=== PATIENT | female | born 1970 | race American Indian/Alaskan Native ===

== ENCOUNTER 2020-01-15 20:26 | Emergency (ER) | payer OTHER ==
[2020-01-15 21:27] VITALS: BP 107/63; PULSE 93
--- NOTE | 2020-01-15 21:49 | CR ---
PROCEDURE INFORMATION: Exam: XR Right Knee Exam date and time: 01/15/2020 9:37 PM Age: 49 years old Clinical indication: Other: Jumped down felt it pop; Additional info: Fall onto RT knee, heard a "pop" TECHNIQUE: Imaging protocol: XR Right knee. Views: 3 views. COMPARISON: No relevant prior studies available. FINDINGS: Bones/joints: There is an acute comminuted fracture of the lateral tibial plateau which extends medially to involve the lateral tibial spine. The distal femur and proximal fibula appear intact as visualized. There is a large knee joint effusion containing a fat fluid level. Soft tissues: There is soft tissue swelling. IMPRESSION: Acute lateral tibial plateau fracture with lipohemarthrosis.
[2020-01-15] MEDS ORDERED: Acetaminophen/HYDROcodone 325-10 MG Tab PO ONE (22:04)
--- NOTE | 2020-01-15 22:09 | EDM.PDOC ---
ED HPI GENERAL MEDICAL PROBLEM - General Chief Complaint: Lower Extremity Injury/Pain Stated Complaint: RT KNEE PAIN Time Seen by Provider: 01/15/20 22:05 Source of Information: Reports: Patient History Limitations: Reports: No Limitations - History of Present Illness INITIAL COMMENTS - FREE TEXT/NARRATIVE: fell onto right knee today. Right Knee Pain Score (Numeric/FACES): 8 - Related Data Allergies Allergy/AdvReac Type Severity Reaction Status Date / Time Penicillins Allergy Severe Difficulty Verified 01/15/20 21:15 Breathing clopidogrel bisulfate Allergy Intermediate Tachycardia Verified 01/15/20 21:15 [From Plavix] amoxicillin Allergy Rash Verified 01/15/20 21:15 insulin detemir Allergy Itching Verified 01/15/20 21:15 [From Levemir] lamotrigine Allergy Itching Verified 01/15/20 21:15 latex Allergy Itching Verified 01/15/20 21:15 morphine Allergy Tachycardia Verified 01/15/20 21:15 nitrofurantoin Allergy Chest Verified 01/15/20 21:15 Tightness rosuvastatin calcium Allergy Rash Verified 01/15/20 21:15 [From Crestor] vitamin B12 Allergy Rash Uncoded 05/16/15 06:23 Home Meds: Home Meds Aspirin [Halfprin] 81 mg PO DAILY 03/24/15 [History] Calcium Carbonate/Vitamin D3 [Calcium 250+D] 1 tab PO BID 03/24/15 [History] Cholecalciferol (Vitamin D3) [Vitamin D3] 1,000 unit PO DAILY 03/24/15 [History] Clindamycin HCl 4 tab PO ASDIRECTED PRN 03/24/15 [History] Ibuprofen 200 mg PO Q6H PRN 03/24/15 [History] Multivitamin [Multivitamins] 1 tab PO DAILY 03/24/15 [History] Nitroglycerin [Nitrostat] 1 tab SL ASDIRECTED 03/24/15 [History] atenoloL [Atenolol] 25 mg PO DAILY 03/24/15 [History] atorvaSTATin Calcium [Atorvastatin Calcium] 20 mg PO DAILY 03/24/15 [History] diphenhydrAMINE [Benadryl] 25 mg PO Q6H PRN 03/24/15 [History] Loratadine 10 mg PO DAILY 05/13/15 [History] Omeprazole 1 cap PO DAILY 11/20/15 [History] SitaGLIPtin [Januvia] 100 mg PO DAILY 12/31/15 [History] Past Medical History Other HEENT History: WEARS CORRECTIVE LENSES Cardiovascular History: Reports: High Cholesterol, Stents, Other (See Below) Other Cardiovascular History: 3 stents placed Gastrointestinal History: Reports: Other (See Below) Other Gastrointestinal History: HX OF DUODENAL ULCER MANAGER E LEARNING History: Reports: , Other (See Below) Other MANAGER E LEARNING History: hx of Other Musculoskeletal History: TOE FRACTURES SET & TAPED Psychiatric History: Reports: Other (See Below) Other Psychiatric History: 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 Endocrine/Metabolic History: Reports: Diabetes, Type II Dermatologic History: Reports: Other (See Below) Other Dermatologic History: DERMATITIS - Past Surgical History Female Surgical History: Reports: Section, Hysterectomy Social & Family History - Family History Family Medical History: Noncontributory - Tobacco Use Smoking Status *Q: Current Every Day Smoker Years of Tobacco use: 30 Packs/Tins Daily: 0.4 Used Tobacco, but Quit: No Second Hand Smoke Exposure: Yes - Caffeine Use Caffeine Use: Reports: Coffee, Soda - Recreational Drug Use Recreational Drug Use: No - Living Situation & Occupation Living situation: Reports: with Family Review of Systems - Review of Systems Review Of Systems: Comprehensive ROS is negative, except as noted in HPI. ED EXAM, GENERAL - Physical Exam Exam: See Below Exam Limited By: No Limitations General Appearance: Alert, WD/WN, Mild Distress, Moderate Distress, Other (pain) Ears: Hearing Grossly Normal Throat/Mouth: Normal Voice, No Airway Compromise Head: Atraumatic Neck: Non-Tender, Full Range of Motion Respiratory/Chest: No Respiratory Distress Cardiovascular: Regular Rate, Rhythm GI/Abdominal: Soft, Non-Tender Extremities: Joint Swelling, Limited Range of Motion, Other (tender R/P, NV wnl, gait limited to pain) Neurological: Alert, Oriented, Normal Cognition, No Motor/Sensory Deficits Psychiatric: Tearful Skin Exam: Warm, Dry, Normal Color Lymphatic: No Adenopathy Course - Vital Signs Last Recorded V/S: Last Vital Signs Temp 36.7 C 01/15/20 21:04 Pulse 93 01/15/20 21:04 Resp 16 01/15/20 21:04 BP 107/63 01/15/20 21:04 Pulse Ox 98 01/15/20 21:04 - Orders/Labs/Meds Orders: Active Orders 24 hr Category Date Time Status Acetaminophen/HYDROcodone [Trout 325-10 MG] Med 01/15/20 22:04 Once 1 tab PO ONETIME ONE Medication Orders Hydrocodone Bitart/Acetaminophen (Trout 325-10 Mg) 1 tab PO ONETIME ONE Stop: 01/15/20 22:05 Meds: Medications Generic Name Dose Route Start Last Admin Trade Name Freq PRN Reason Stop Dose Admin Hydrocodone Bitart/Acetaminophen 1 tab 01/15/20 22:04 Trout 325-10 Mg PO 01/15/20 22:05 ONETIME ONE - Re-Assessments/Exams Free Text/Narrative Re-Assessment/Exam: 01/15/20 22:06 results discussed with pt. Departure - Departure Time of Disposition: 22:07 Disposition: Home, Self-Care 01 Condition: Good Clinical Impression: Tibial plateau fracture, right Qualifiers: Encounter type: initial encounter Fracture type: closed Qualified Code(s): S 82.141A - Displaced bicondylar fracture of right tibia, initial encounter for closed fracture - Discharge Information Instructions: Nondisplaced Tibial Plateau Fracture Additional Instructions: 1) wear brace and use crutches 2) see clinic Saturday for ORTHOPEDIC REFERRAL for facture rx given; vicodin 5/325mg tid prn x 12 Sepsis Event Note (ED) - Evaluation Sepsis Screening Result: No Definite Risk - Focused Exam Vital Signs: Vital Signs Temp Pulse Resp BP Pulse Ox 01/15/20 21:04 36.7 C 93 16 107/63 98 - My Orders Last 24 Hours: My Active Orders 01/15/20 22:04 Acetaminophen/HYDROcodone [Trout 325-10 MG] 1 tab PO ONETIME ONE - Assessment/Plan Last 24 Hours: My Active Orders 01/15/20 22:04 Acetaminophen/HYDROcodone [Trout 325-10 MG] 1 tab PO ONETIME ONE
== END 2020-01-15 22:21 | disposition home or self-care (01) ==
LOC: DL.ED 20:26
DX: S82.141A Displaced bicondylar fracture of right tibia, initial encounter for closed fracture (principal); E78.00 Pure hypercholesterolemia, unspecified; F17.210 Nicotine dependence, cigarettes, uncomplicated; Z88.0 Allergy status to penicillin; Z88.1 Allergy status to other antibiotic agents; Z91.040 Latex allergy status; Z88.5 Allergy status to narcotic agent; Z88.8 Allergy status to other drugs, medicaments and biological substances; Z79.82 Long term (current) use of aspirin; Z79.899 Other long term (current) drug therapy; E11.9 Type 2 diabetes mellitus without complications; Z79.84 Long term (current) use of oral hypoglycemic drugs; W19.XXXA Unspecified fall, initial encounter
CPT/HCPCS: 73560; 99283; A9270

== ENCOUNTER 2020-07-26 14:52 | Emergency (ER) | payer OTHER ==
[2020-07-26 15:03] VITALS: BP 124/82; PULSE 96
[2020-07-26] MEDS ORDERED: Acetaminophen 500 MG Tab PO ONE (15:10)
--- NOTE | 2020-07-26 15:27 | EDM.PDOC ---
ED HPI GENERAL MEDICAL PROBLEM - General Chief Complaint: Lower Extremity Injury/Pain Stated Complaint: AMBULANCE Time Seen by Provider: 07/26/20 15:05 Source of Information: Reports: Patient, Old Records, RN, RN Notes Reviewed History Limitations: Reports: No Limitations - History of Present Illness INITIAL COMMENTS - FREE TEXT/NARRATIVE: Patient presents to the ED via EMS with complaints of bilateral knee pain and right ankle pain following a fall at home. The patient reports she has a history of right tibial plateau fracture from December 2019 which she has been treating conservatively; she declined surgery and has not yet been to PT. Today she states her crutches got caught in her vent and she tipped over into left knee which caused her to hyperextend her right knee and ankle. She states this incident occurred about two hours prior to her arrival to this facility. She has not taken any analgesics since sustaining the injury. She reports she is able to appropriately bear weight on her left extremity, but notes pain when doing so. She denies injury to her head and did not lose consciousness; she is not currently taking blood thinners. Right Knee Pain Score (Numeric/FACES): 6 - Related Data Allergies Allergy/AdvReac Type Severity Reaction Status Date / Time Penicillins Allergy Severe Difficulty Verified 07/26/20 14:59 Breathing clopidogrel bisulfate Allergy Intermediate Tachycardia Verified 07/26/20 14:59 [From Plavix] amoxicillin Allergy Rash Verified 07/26/20 14:59 insulin detemir Allergy Itching Verified 07/26/20 14:59 [From Levemir] lamotrigine Allergy Itching Verified 07/26/20 14:59 latex Allergy Itching Verified 07/26/20 14:59 morphine Allergy Tachycardia Verified 07/26/20 14:59 nitrofurantoin Allergy Chest Verified 07/26/20 14:59 Tightness rosuvastatin calcium Allergy Rash Verified 07/26/20 14:59 [From Crestor] vitamin B12 Allergy Rash Uncoded 07/26/20 14:59 Home Meds: Home Meds Aspirin [Halfprin] 81 mg PO DAILY 03/24/15 [History] Calcium Carbonate/Vitamin D3 [Calcium 250+D] 1 tab PO BID 03/24/15 [History] Cholecalciferol (Vitamin D3) [Vitamin D3] 1,000 unit PO DAILY 03/24/15 [History] Clindamycin HCl 4 tab PO ASDIRECTED PRN 03/24/15 [History] Ibuprofen 200 mg PO Q6H PRN 03/24/15 [History] Multivitamin [Multivitamins] 1 tab PO DAILY 03/24/15 [History] Nitroglycerin [Nitrostat] 1 tab SL ASDIRECTED 03/24/15 [History] atenoloL [Atenolol] 25 mg PO DAILY 03/24/15 [History] atorvaSTATin Calcium [Atorvastatin Calcium] 20 mg PO DAILY 03/24/15 [History] diphenhydrAMINE [Benadryl] 25 mg PO Q6H PRN 03/24/15 [History] Loratadine 10 mg PO DAILY 05/13/15 [History] Omeprazole 1 cap PO DAILY 05/13/15 [History] SitaGLIPtin [Januvia] 100 mg PO DAILY 12/31/15 [History] Past Medical History Other HEENT History: WEARS CORRECTIVE LENSES Cardiovascular History: Reports: High Cholesterol, Stents, Other (See Below) Other Cardiovascular History: 3 stents placed Respiratory History: Reports: None Gastrointestinal History: Reports: Other (See Below) Other Gastrointestinal History: HX OF DUODENAL ULCER Genitourinary History: Reports: None 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: , Other (See Below) Other INSURANCE OFFICE SUPERVISOR History: hx of Other Musculoskeletal History: TOE FRACTURES SET & TAPED Neurological History: Reports: None Psychiatric History: Reports: Other (See Below) Other Psychiatric History: 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 Endocrine/Metabolic History: Reports: Diabetes, Type II Hematologic History: Reports: None Immunologic History: Reports: None Oncologic (Cancer) History: Reports: None Dermatologic History: Reports: Other (See Below) Other Dermatologic History: DERMATITIS - Infectious Disease History Infectious Disease History: Reports: None - Past Surgical History Female Surgical History: Reports: Section, Hysterectomy Social & Family History - Family History Family Medical History: No Pertinent Family History - Tobacco Use Tobacco Use Status *Q: Heavy Tobacco User Years of Tobacco use: 20 Packs/Tins Daily: 1 - Caffeine Use Caffeine Use: Reports: Coffee - Recreational Drug Use Recreational Drug Use: No - Living Situation & Occupation Living situation: Reports: with Family Review of Systems - Review of Systems Review Of Systems: Comprehensive ROS is negative, except as noted in HPI. ED EXAM, GENERAL - Physical Exam Exam: See Below Exam Limited By: No Limitations General Appearance: Alert, No Apparent Distress Eye Exam: Bilateral Eye: EOMI, Normal Inspection, PERRL (3mm) Throat/Mouth: Normal Inspection, Normal Voice, No Airway Compromise Head: Atraumatic, Normocephalic Respiratory/Chest: No Respiratory Distress, Lungs Clear, Normal Breath Sounds, No Accessory Muscle Use, Chest Non-Tender Cardiovascular: Normal Peripheral Pulses, Regular Rate, Rhythm, No Gallop, No JVD, No Murmur, No Rub Peripheral Pulses: 2+: Radial (L), Radial (R), Posterior Tibial (L), Posterior Tibial (R), Dorsalis Pedis (L), Dorsalis Pedis (R) Extremities: Normal Capillary Refill, Joint Swelling (+2 non-pitting to right knee; +1 non-pitting to right ankle; trace non-pitting to left knee), Leg Pain (To bilateral knees and and right ankle), Limited Range of Motion (To bilateral knees and right ankle), Redness (To anterior aspect of left knee). No: Increased Warmth, Mottled, Pallor Neurological: Alert, Oriented, CN II-XII Intact, Normal Cognition, No Motor/Sensory Deficits, Abnormal Gait (Patient utilizes crutches d/t previous injury to right extremity) Psychiatric: Normal Affect, Normal Mood Skin Exam: Warm, Dry, Intact, Normal Color, No Rash. No: Ecchymosis, Erythema, Jaundice, Mottled, Pallor, Petechiae Course - Vital Signs Last Recorded V/S: Last Vital Signs Temp 98.1 F 07/26/20 14:59 Pulse 96 07/26/20 14:59 Resp 18 07/26/20 14:59 BP 124/82 07/26/20 14:59 Pulse Ox 95 07/26/20 14:59 - Orders/Labs/Meds Meds: Medications Discontinued Medications Generic Name Dose Route Start Last Admin Trade Name [place] PRN Reason Stop Dose Admin Acetaminophen 1,000 mg 07/26/20 15:10 07/26/20 15:37 Tylenol Extra Strength PO 07/26/20 15:11 1,000 mg ONETIME ONE Administration - Radiology Interpretation Free Text/Narrative:: [facility] - Final Radiology Report Call: [phone] assistance Online chat: [email or web address] Name: ONEL MESSINA Age: 50Years F Date: 07/26/2020 SSN: -- : [id number] Study: CR KNEE 3V LT Requesting Physician: Mary Peterson Images: 3 Addl Studies: Provided Clinical History: Swelling and pain following fall Contrast: Contrast Medium: Contrast Amount: Contrast Method: CONFIDENTIALITY STATEMENT This report is intended only for use by the referring physician, and only in accordance with law. If you received this in error, call [phone]. Page 1 of 1 PROCEDURE INFORMATION: Exam: XR Left Knee Exam date and time: 07/26/2020 3:30 PM Age: 50 years old Clinical indication: Other: Pain and swelling following fall; Additional info: Swelling and pain following fall TECHNIQUE: Imaging protocol: XR Left knee. Views: 3 views. COMPARISON: No relevant prior studies available. FINDINGS: Bones/joints: There is no evidence of acute fracture. There is no evidence of joint malalignment or dislocation. Mild degenerative changes. Soft tissues: There are no soft tissue masses or fluid collections. IMPRESSION: 1. No evidence of acute fracture. 2. No evidence of acute dislocation. 3. Mild degenerative changes. Thank you for allowing us to participate in the care of your patient. Dictated and Authenticated by: Aric Dickson DO 07/26/2020 3:42 PM Central Time ([place] & [place]) [facility] Final Radiology Report Call: [phone] assistance Online chat: [email or web address] Name: ONEL MESSINA Age: 50Years F Date: 07/26/2020 SSN: -- : [id number] Study: CR KNEE 3V RT Requesting Physician: Mary Peterson Images: 3 Addl Studies: Provided Clinical History: Swelling and pain following fall Contrast: Contrast Medium: Contrast Amount: Contrast Method: CONFIDENTIALITY STATEMENT This report is intended only for use by the referring physician, and only in acc ordance with law. If you received this in error, call [phone]. Page 1 of 1 PROCEDURE INFORMATION: Exam: XR Right Knee Exam date and time: 07/26/2020 3:28 PM Age: 50 years old Clinical indication: Other: Pain and swelling following fall; Additional info: Swelling and pain following fall TECHNIQUE: Imaging protocol: XR Right knee. Views: 3 views. COMPARISON: CR Knee 1V or 2V Rt 01/15/2020 9:37 PM FINDINGS: Bones/joints: Bones are osteopenic. There is depression of the lateral tibial plateau, similar to the prior study. Joint effusion is present. Soft tissues: Mild soft tissue swelling. IMPRESSION: 1. Bones are osteopenic. 2. There is depression of the lateral tibial plateau, similar to the prior study. 3. Joint effusion is present. 4. Mild soft tissue swelling. Thank you for allowing us to participate in the care of your patient. Dictated and Authenticated by: Aric Dickson DO 07/26/2020 3:41 PM Central Time ([place] & [place]) [facility] - Final Radiology Report Call: [phone] assistance Online chat: [email or web address] Name: ONEL MESSINA Age: 50Years F Date: 07/26/2020 SSN: -- : 1970 Study: CR ANKLE MIN 3V RT Requesting Physician: Mary Peterson Images: 3 Addl Studies: Provided Clinical History: Pain and swelling following fall Contrast: Contrast Medium: Contrast Amount: Contrast Method: CONFIDENTIALITY STATEMENT This report is intended only for use by the referring physician, and only in accordance with law. If you received this in error, call [phone]. Page 1 of 1 PROCEDURE INFORMATION: Exam: XR Right Ankle Exam date and time: 07/26/2020 3:25 PM Age: 50 years old Clinical indication: Other: Pain and swelling following fall TECHNIQUE: Imaging protocol: XR Right ankle. Views: 3 or more views. COMPARISON: No relevant prior studies available. FINDINGS: Bones/joints: Bones are osteopenic. There is no evidence of acute fracture. There is no evidence of joint malalignment or dislocation. Soft tissues: Soft tissue swelling is present. IMPRESSION: 1. Bones are osteopenic. 2. Soft tissue swelling is present. 3. No evidence of acute fracture. 4. No evidence of acute dislocation. Thank you for allowing us to participate in the care of your patient. Dictated and Authenticated by: Aric Dickson DO 07/26/2020 3:40 PM Central Time ([place] & [place]) - Re-Assessments/Exams Free Text/Narrative Re-Assessment/Exam: 07/26/20 Xrays of bilateral knees and right ankle unremarkable for fracture or dislocation; discussed findings with patient. Will treat strain of bilateral knees and right ankle with supportive care measures. Patient counseled on management of swelling, pain, and mobility. Red flag signs and symptoms which would warrant reevaluation discussed. Patient verbalized understanding and agreement with the plan of care. Departure - Departure Time of Disposition: 15:50 Disposition: Home, Self-Care 01 Condition: Good Clinical Impression: Injury of right knee, leg ankle and foot Qualifiers: Encounter type: initial encounter Qualified Code(s): S89.91XA - Unspecified injury of right lower leg, initial encounter Injury of left knee Qualifiers: Encounter type: initial encounter Qualified Code(s): S89.92XA - Unspecified injury of left lower leg, initial encounter - Discharge Information *PRESCRIPTION DRUG MONITORING PROGRAM REVIEWED*: Not Applicable *COPY OF PRESCRIPTION DRUG MONITORING REPORT IN PATIENT ROBYN: Not Applicable Forms: ED Department Discharge Additional Instructions: 1.) Continue following with your primary care provider regarding healing of right knee; including physical therapy. 2.) You may take acetaminophen (Tylenol) 1000mg every six hours, as pain persists. You may also take ibuprofen (Advil/Motrin) 400mg every six hours, as pain persists. You may stagger these medications so you are taking a dose of medicine every three hours. 3.) You may apply [id number] lidocaine cream to both knees and ankle, as pain persists. 4.) You may apply ice to the injured areas, as pain and swelling persist, for 20 minutes every hour. Sepsis Event Note (ED) - Evaluation Sepsis Screening Result: No Definite Risk - Focused Exam Vital Signs: Vital Signs Temp Pulse Resp BP Pulse Ox 07/26/20 14:59 98.1 F 96 18 124/82 95
--- NOTE | 2020-07-26 15:40 | CR ---
PROCEDURE INFORMATION: Exam: XR Right Ankle Exam date and time: 07/26/2020 3:25 PM Age: 50 years old Clinical indication: Other: Pain and swelling following fall TECHNIQUE: Imaging protocol: XR Right ankle. Views: 3 or more views. COMPARISON: No relevant prior studies available. FINDINGS: Bones/joints: Bones are osteopenic. There is no evidence of acute fracture. There is no evidence of joint malalignment or dislocation. Soft tissues: Soft tissue swelling is present. IMPRESSION: 1. Bones are osteopenic. 2. Soft tissue swelling is present. 3. No evidence of acute fracture. 4. No evidence of acute dislocation.
--- NOTE | 2020-07-26 15:41 | CR ---
PROCEDURE INFORMATION: Exam: XR Right Knee Exam date and time: 07/26/2020 3:28 PM Age: 50 years old Clinical indication: Other: Pain and swelling following fall; Additional info: Swelling and pain following fall TECHNIQUE: Imaging protocol: XR Right knee. Views: 3 views. COMPARISON: CR Knee 1V or 2V Rt 01/15/2020 9:37 PM FINDINGS: Bones/joints: Bones are osteopenic. There is depression of the lateral tibial plateau, similar to the prior study. Joint effusion is present. Soft tissues: Mild soft tissue swelling. IMPRESSION: 1. Bones are osteopenic. 2. There is depression of the lateral tibial plateau, similar to the prior study. 3. Joint effusion is present. 4. Mild soft tissue swelling.
--- NOTE | 2020-07-26 15:42 | CR ---
PROCEDURE INFORMATION: Exam: XR Left Knee Exam date and time: 07/26/2020 3:30 PM Age: 50 years old Clinical indication: Other: Pain and swelling following fall; Additional info: Swelling and pain following fall TECHNIQUE: Imaging protocol: XR Left knee. Views: 3 views. COMPARISON: No relevant prior studies available. FINDINGS: Bones/joints: There is no evidence of acute fracture. There is no evidence of joint malalignment or dislocation. Mild degenerative changes. Soft tissues: There are no soft tissue masses or fluid collections. IMPRESSION: 1. No evidence of acute fracture. 2. No evidence of acute dislocation. 3. Mild degenerative changes.
== END 2020-07-26 16:00 | disposition home or self-care (01) ==
LOC: DL.ED 14:52
DX: S89.91XA Unspecified injury of right lower leg, initial encounter (principal); S89.92XA Unspecified injury of left lower leg, initial encounter; S99.911A Unspecified injury of right ankle, initial encounter; S99.921A Unspecified injury of right foot, initial encounter; E78.00 Pure hypercholesterolemia, unspecified; E11.9 Type 2 diabetes mellitus without complications; Z72.0 Tobacco use; Z88.7 Allergy status to serum and vaccine; Z88.8 Allergy status to other drugs, medicaments and biological substances; Z91.040 Latex allergy status; Z88.5 Allergy status to narcotic agent; Z88.1 Allergy status to other antibiotic agents; Z88.0 Allergy status to penicillin; Z79.82 Long term (current) use of aspirin; Z79.899 Other long term (current) drug therapy; W01.0XXA Fall on same level from slipping, tripping and stumbling without subsequent striking against object, initial encounter
CPT/HCPCS: 73562; 73610; 99283; A9270